=== PATIENT | male | born 1995 | race Caucasian/White ===

== ENCOUNTER → 2019-07-29 | Emergency (ER) | payer OTHER ==
[~2019-07-29] VITALS: Ht 182.9 cm; Wt 99.8 kg
[~2019-07-29] MED LIST: HYDROcodone-ACET 10/325MG TAB PO ONE; HYDROmorphone HCL 2 MG/ML VL IV ONE; MORPHINE SULFATE 4 MG/ML SYR/VIAL IV ONE; ONDANSETRON HCL 4 MG/2 ML VIAL IV ONE
[2019-07-29 21:00] VITALS: BP 126/80
== END | disposition home or self-care (01) ==
LOC: ER 18:32
DX: S42.292A Other displaced fracture of upper end of left humerus, initial encounter for closed fracture (principal); S70.02XA Contusion of left hip, initial encounter; R55 Syncope and collapse; Z88.2 Allergy status to sulfonamides; W18.39XA Other fall on same level, initial encounter; Y93.89 Activity, other specified; Y92.89 Other specified places as the place of occurrence of the external cause; Y99.8 Other external cause status
CPT/HCPCS: 29105; 70450; 71250; 72125; 73030; 73502; 74176; 96374; 96375; 99285; J1170; J2270; J2405